=== PATIENT | male | born 1955 | race African-American/Black ===

== ENCOUNTER 2023-01-26 06:39 | Emergency (ER) | payer OTHER ==
[~2023-01-26] VITALS: Ht 177.8 cm; Wt 88.0 kg
[2023-01-26 06:50] VITALS: BP_SYST 150; PULSE 76; RESP 16; TEMP 97.9; O2SAT 99
[2023-01-26] MEDS ORDERED: LIDOCAINE/PRILOCAINE 5 GM CREAM (EMLA) TP ONE (07:30)
[2023-01-26] MEDS ORDERED: KETOROLAC TROMETHAMINE 15 MG VIAL IM ONE (07:30)
[2023-01-26] MEDS ORDERED: DOCU-144 PO (08:00)
[2023-01-26] MEDS ORDERED: LIDO28CR2 TP (08:00)
[2023-01-26] MEDS ORDERED: ANURH RC (08:00)
[2023-01-26] MEDS ORDERED: HYDR30CR79 TP (08:00)
[2023-01-26] MEDS ORDERED: POLY17PO4 PO (08:00)
[2023-01-26 09:17] LABS: BASOPHILS % (AUTO) 0.9 % (0.0-2.0); EOSINOPHILS # (AUTO) 0.3 K/uL (0.0-0.4); EOSINOPHILS % (AUTO) 5.1 % (0.0-4.0); HEMATOCRIT 39.5 % (36-54); LYMPHOCYTES # (AUTO) 1.7 K/uL (1.0-5.5); LYMPHOCYTES % (AUTO) 30.6 % (20.5-51.5); MEAN CORPUSCULAR HEMOGLOBIN 31 pg (27-31); MEAN CORPUSCULAR HGB CONC 33 % (32-36); MEAN CORPUSCULAR VOLUME 94 fL (79.0-98.0); MONOCYTES # (AUTO) 0.5 K/uL (0.0-1.0); MONOCYTES % (AUTO) 9.8 % (1.7-9.3); NEUTROPHILS % (AUTO) 53.6 % (40.0-70.0); PLATELET COUNT (AUTO) 234 K/uL (130-430); RED BLOOD CELL COUNT(AUTO) 4.21 MIL/uL (4.2-6.2); RED CELL DISTRIBUTION WIDTH 13.6 % (9.0-15.0); WHITE BLOOD COUNT (AUTO) 5.5 K/uL (4.8-10.8)
[2023-01-26 09:31] VITALS: BP_SYST 150; PULSE 76; RESP 16; TEMP 97.9; O2SAT 99
== END 2023-01-26 09:32 | disposition home or self-care (01) ==
LOC: SED 06:39
DX: N64.4 Mastodynia (principal); I10 Essential (primary) hypertension; E11.9 Type 2 diabetes mellitus without complications; Z79.899 Other long term (current) drug therapy
CPT/HCPCS: 99283; 85025; 36415; 96372; J1885